=== PATIENT | female | born 1985 | race African-American/Black ===

== ENCOUNTER 2020-09-16 09:44 | Outpatient (CLI) | payer MEDICARE, SELFPAY ==
--- NOTE | ~2020-09-16 | XR_ITS ---
XR hip LT min 2V 09/16/2020 10:10 Indication: Left hip pain Procedure: 2 views left hip Comparison: No prior studies for comparison. Findings: No fracture, subluxation or dislocation. No significant soft tissue abnormality. No foreign bodies. Impression: 1: No significant bone or joint abnormality. Reviewed, dictated and finalized at location A. 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
== END 2020-09-16 09:45 | disposition home or self-care (01) ==
PROVIDERS: PCP Internal Medicine Infectious Disease; Visit Provider Internal Medicine Infectious Disease
DX: M25.552 Pain in left hip (principal)
CPT/HCPCS: 73502

== ENCOUNTER 2020-11-15 07:53 | Outpatient (CLI) | payer MEDICARE, SELFPAY ==
--- NOTE | ~2020-11-15 | XR_ITS ---
EXAMINATION: XR cervical spine 4-5V EXAM DATE: 11/15/2020 09:15 INDICATION: Cervical radiculopathy. TECHNIQUE: Cervical spine frontal, lateral, lateral swimmers, and open-mouth odontoid projections. C orrelation is made to scoliosis exam 2013. FINDINGS: There is no evidence of acute cervical fracture. The odontoid process is intact. Pre-dens space is normal. Prevertebral soft tissue is normal. There are no soft tissue abnormalities identi fied. The vertebral bodies are aligned. Vertebral body and disc heights are well-maintained. No appreciable arthropathy. Lung apices unremarkable. IMPRESSION: 1. Unremarkable cervical spine x-ray. Reviewed, dictated and finalized at location B. ND HELPER
--- NOTE | ~2020-11-15 | MR_ITS ---
EXAMINATION: MR lumbar spine wo con DATE: 11/15/2020 09:14 INDICATION: Lumbar radiculopathy. TECHNIQUE: Magnetic resonance imaging (MRI) of the lumbar spine was performed without intravenous con trast. Sequences included sagittal T2-weighted FSE, sagittal STIR FSE, sagittal T2-weighted FS FSE, s agittal T1-weighted FSE, and axial T2-weighted FSE. COMPARISON: None FINDINGS: There is 10 degrees levoscoliosis of thoracolumbar spine. Vertebral body heights and interv ertebral disc heights are normal. There is a hemangioma in L1 vertebral body. The distal spinal cord signal intensity is normal. The conus medullaris is at L1. The following disc levels are specifically discussed: L1-L2: The disc does not extend beyond the endplate margin. There is no facet joint osteoarthritis. T here is no neural foraminal stenosis. There is no central canal stenosis. L2-L3: The disc does not extend beyond the endplate margin. There is no facet joint osteoarthritis. T here is no neural foraminal stenosis. There is no central canal stenosis. L3-L4: The disc is mildly bulging. There is mild bilateral facet joint osteoarthritis. There is mild bilateral neural foraminal stenosis. There is mild central canal stenosis. L4-L5: The disc is bulging and has an annular fissure. There is moderate bilateral facet joint osteoa rthritis. There is mild bilateral neural foraminal stenosis. There is mild central canal stenosis. L5-S1: The disc is bulging and has an annular fissure. There is severe bilateral facet joint osteoart hritis. There is mild bilateral neural foraminal stenosis. There is mild central canal stenosis. IMPRESSION: 1. Mild lumbar spondylosis. 2. Thoracolumbar levoscoliosis. Reviewed, dictated and finalized at location A. [employer]
== END 2020-11-15 07:54 | disposition home or self-care (01) ==
PROVIDERS: PCP Internal Medicine Infectious Disease; Visit Provider Pain Medicine Interventional Pain Medicine
DX: M47.816 Spondylosis without myelopathy or radiculopathy, lumbar region (principal)
CPT/HCPCS: 72050; 72148

== ENCOUNTER 2021-01-19 08:03 | Outpatient (CLI) | payer MEDICARE, SELFPAY ==
--- NOTE | ~2021-01-19 | MR_ITS ---
EXAMINATION: MR cervical spine wo con EXAM DATE: 01/19/2021 08:45 INDICATION: Cervical radiculopathy. Left arm numbness. Neck pain. TECHNIQUE: Multi-sequential, multiplanar MR images of the cervical spine were obtained without contra st. Axial T2, axial T2 MERGE sequence. Sagittal T1, T2, T2 fat saturation images also obtained. Com parison is made to prior examination from 01/03/2019. FINDINGS: The vertebral bodies are aligned in the AP dimension. Vertebral body and disc heights are well-maintained. There are no suspicious marrow signal abnormalities. The spinal cord signal intensit y and intrinsic morphology is normal. Cervicomedullary junction is normal in appearance. Paraspinal s oft tissue is unremarkable. Level by level evaluation: C2-C3: Disc does not extend beyond the endplate margin. Uncovertebral joint arthropathy: Mild left. Facet joint arthropathy: Minimal bilateral. Neural foraminal stenosis: No stenosis. Central canal stenosis: No stenosis. C3-C4: Disc does not extend beyond the endplate margin. Uncovertebral joint arthropathy: Mild bilateral. Facet joint arthropathy: Minimal bilateral. Neural foraminal stenosis: No stenosis. Central canal stenosis: No stenosis. C4-C5: Disc does not extend beyond the endplate margin. Uncovertebral joint arthropathy: Mild bilateral. Facet joint arthropathy: None. Neural foraminal stenosis: No stenosis. Central canal stenosis: No stenosis. C5-C6: Disc does not extend beyond the endplate margin. Uncovertebral joint arthropathy: Minimal bilateral. Facet joint arthropathy: None. Neural foraminal stenosis: No stenosis. Central canal stenosis: No stenosis. C6-C7: Disc does not extend beyond the endplate margin. Uncovertebral joint arthropathy: Mild bilateral. Facet joint arthropathy: None. Neural foraminal stenosis: No stenosis. Central canal stenosis: No stenosis. C7-T1: Disc does not extend beyond the endplate margin. Uncovertebral joint arthropathy: Minimal bilateral. Facet joint arthropathy: None. Neural foraminal stenosis: No stenosis. Central canal stenosis: No stenosis. IMPRESSION: Mild cervical arthropathy. No stenosis. Reviewed, dictated and finalized at location A.
== END 2021-01-19 08:04 | disposition home or self-care (01) ==
PROVIDERS: PCP Internal Medicine Infectious Disease; Visit Provider Pain Medicine Interventional Pain Medicine
DX: M54.17 Radiculopathy, lumbosacral region (principal); Z79.891 Long term (current) use of opiate analgesic; G89.4 Chronic pain syndrome
CPT/HCPCS: 72141

== ENCOUNTER 2023-01-25 08:07 | Outpatient (CLI) | payer OTHER, SELFPAY ==
--- NOTE | ~2023-01-25 | CT_ITS ---
CT Scan of the Chest without Contrast: Clinical Indication: Covid 19 infection Technique: Contiguous sections were acquired throughout the chest without intravenous contrast. Dose reduction technique was used on this scan by utilizing automated exposure control and iterative recon struction technique. The dose-length product (DLP) was 120.50 mGy-cm. Findings: There is no evidence of any significant mediastinal, hilar or axillary lymphadenopathy. The mediastin al soft tissues appear normal. There is no evidence of pleural or pericardial effusion. The lungs are clear. No pulmonary nodules or infiltrates are noted. Images through the upper abdomen reveal no abnormalities. Impression: No significant abnormalities seen. Reviewed, dictated and finalized at location . Impression: No significant abnormalities seen.
--- NOTE | ~2023-01-25 | XR_ITS ---
AP and oblique views of the bilateral sacroiliac joints CLINICAL HISTORY: Sacroiliitis FINDINGS: No degenerative change of the SI joints. No erosive change or sclerosis. Bilateral SI joint s are unremarkable. Bilateral hip joints appear unremarkable. Soft tissues are unremarkable. IMPRESSION: Unremarkable exam. Reviewed, dictated and finalized at location . IMPRESSION: Unremarkable exam.
--- NOTE | ~2023-01-25 | XR_ITS ---
Lumbosacral Spine: AP and lateral views Clinical History: Pain Findings: The normal lordotic curve is maintained. The vertebral bodies and posterior elements are i ntact. The intervertebral disc spaces are preserved. The sacroiliac joints are normally outlined. Impression: No significant abnormality. Reviewed, dictated and finalized at [facility]. Impression: No significant abnormality.
--- NOTE | ~2023-01-25 | XR_ITS ---
Cervical Spine: AP, lateral, open-mouth views Clinical History: Radiculopathy Findings: The normal lordotic curve is maintained. The vertebral bodies and posterior elements appea r intact. The intervertebral disc spaces are well maintained. Pre-vertebral soft tissues are unremar kable. Impression: No significant abnormality is seen. Reviewed, dictated and finalized at [facility]. Impression: No significant abnormality is seen.
== END 2023-01-25 08:08 | disposition home or self-care (01) ==
PROVIDERS: PCP Internal Medicine Infectious Disease; Visit Provider Nurse Practitioner Adult Health
DX: M46.1 Sacroiliitis, not elsewhere classified (principal); M47.26 Other spondylosis with radiculopathy, lumbar region; M47.812 Spondylosis without myelopathy or radiculopathy, cervical region; Z86.16 Personal history of COVID-19
CPT/HCPCS: 71250; 72050; 72100; 72202

== ENCOUNTER 2023-05-31 07:31 | Outpatient (CLI) | payer OTHER, SELFPAY ==
--- NOTE | ~2023-05-31 | MR_ITS ---
EXAMINATION: MR lumbar spine wo con DATE: 05/31/2023 08:33 INDICATION: Other spondylosis with radiculopathy, lumbar spine. Low back pain. TECHNIQUE: Magnetic resonance imaging (MRI) of the lumbar spine was performed without intravenous con trast. Sequences included sagittal T2-weighted FSE, sagittal T2-weighted FS FSE, sagittal T1-weighted FSE, and axial T2-weighted FSE. COMPARISON: Lumbar spine MRI 11/15/2020 FINDINGS: There is 8 degrees levocurvature of lumbar spine. Vertebral body heights and intervertebral disc heights are normal. The distal spinal cord signal intensity is normal. The conus medullaris is at L1-L2. The following disc levels are specifically discussed: L1-L2: The disc does not extend beyond the endplate margin. There is mild bilateral facet joint osteo arthritis. There is no neural foraminal stenosis. There is no central canal stenosis. L2-L3: The disc does not extend beyond the endplate margin. There is mild bilateral facet joint osteo arthritis. There is no neural foraminal stenosis. There is no central canal stenosis. L3-L4: There is a left foraminal protrusion. There is mild bilateral facet joint osteoarthritis. Ther e is mild left neural foraminal stenosis. There is no central canal stenosis. L4-L5: The disc is mildly bulging. There is mild bilateral facet joint osteoarthritis. There is mild bilateral neural foraminal stenosis. There is no central canal stenosis. L5-S1: The disc does not extend beyond the endplate margin. There is mild bilateral facet joint osteo arthritis. There is no neural foraminal stenosis. There is no central canal stenosis. IMPRESSION: 1. Mild lumbar spondylosis, stable from 11/15/2020. Reviewed, dictated and finalized at location A.
== END 2023-05-31 07:32 | disposition home or self-care (01) ==
PROVIDERS: PCP Internal Medicine Infectious Disease; Visit Provider Nurse Practitioner Adult Health
DX: M47.26 Other spondylosis with radiculopathy, lumbar region (principal)
CPT/HCPCS: 72148

== ENCOUNTER 2024-06-28 07:54 | Outpatient (CLI) | payer MEDICARE, MEDICAID, SELFPAY ==
--- NOTE | ~2024-06-28 | MM_ITS ---
EXAMINATION: MM screening magan BI w sanam HISTORY: Screening mammogram TECHNIQUE: Craniocaudal and mediolateral oblique 3-D tomosynthesis images were obtained and synthetic 2-D images were generated. CAD analysis was submitted and interpreted. COMPARISON: No prior mammogram is available for comparison at this institution. BREAST PARENCHYMAL COMPOSITION:Not Dense. There are scattered areas of fibroglandular density. FINDINGS: No suspicious mass, calcification, or architectural distortion are identified in either sara ast to suggest malignancy. There has been no suspicious interval change. IMPRESSION: No mammographic evidence of malignancy. Recommend routine screening mammography in one year. BI-RADS Category 1: Negative Reviewed, dictated and finalized at location .
== END 2024-06-28 07:55 | disposition home or self-care (01) ==
PROVIDERS: PCP Internal Medicine Infectious Disease; Visit Provider Internal Medicine Infectious Disease
DX: Z12.31 Encounter for screening mammogram for malignant neoplasm of breast (principal)
CPT/HCPCS: 77063; 77067

== ENCOUNTER 2025-08-03 12:23 | Outpatient (CLI) | payer MEDICARE, SELFPAY ==
--- NOTE | ~2025-08-03 | US_ITS ---
US renal BI 08/03/2025 13:17 Procedure: Realtime transabdominal ultrasound of the kidneys and bladder. Indication: Chronic kidney disease stage II Comparison: No prior studies for comparison. Findings: Renal echotexture is normal bilaterally without hydronephrosis, contour deforming mass or renal calculus. The right kidney measures 9.6 cm and left kidney measures 10.7 cm. Bladder within normal limits. Impression: 1: Unremarkable renal ultrasound. No stones, masses or hydronephrosis. Reviewed, dictated and finalized at location O. Impression: 1: Unremarkable renal ultrasound. No stones, masses or hydronephrosis.
--- OUTSIDE RECORDS SUMMARY | 2025-08-03 13:17 | XMS_ITS | Clinical Summary ---
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 Phone Omar Mahan MD Primary Care Provider Social History Tobacco Use Types Packs/Day Years Used Date Smoking Tobacco: Never Assessed Comments Unknown Sex and Gender Information Value Date Recorded Sex Assigned at Female 12/27/2023 4:04 PM CDT Legal Sex Female 8:55 AM CDT Gender Identity Female 12/27/2023 4:04 PM CDT Sexual Orientation Straight 12/27/2023 4: 04 PM CDT Plan of Treatment Health Maintenance Due Date Last Done Comments Hepatitis C Virus (HCV) Screening 1983 Hepatitis B Immunization (1 of 3 - 19+ 3-dose series) 2002 Pap Smear 2004 Human Papillomavirus (HPV) Immunization (1 - 3-dose SCDM series) 2010 Cervical Cancer Screening (CCS) 2013 HPV/Cotest 2013 Medicare Initial AWV [id number] 10/12/2022 Influenza Immunization (#1) 06/12/202508/13, 05/16/2021, 09/23/2020, Additional history exists SARS-COV-2 Immunization ( season) 2025 09/09/2021, 01/27/2021, 01/06/2021 Respiratory Syncytial Virus (RSV) Immunization (Adult) (1 - 1-dose 75+ series) 2058 DTaP/Tdap/Td Immunization Discontinued 11/26/2017, 09/2012 TdaP Immunization Completed 11/26/2017 Pneumococcal Immunization Combined Aged Out 08/04/2018, 07/29/2017, 01/22/2012 No longer eligible based on patient's age to complete this topic Meningococcal Immunization (ACWY) Aged Out No longer eligible based on patient's age to complete this topic Rotavirus Immunization Aged Out No lo nger eligible based on patient's age to complete this topic Insurance MEDICARE C [employer] Care Teams Automobile Painter Relationship Specialty Start Date End Date Omar Mahan MD [address] [place] [address] PCP - General Internal Medicine 06/08/23
--- OUTSIDE RECORDS SUMMARY | 2025-08-03 13:17 | XMS_ITS | Clinical Summary ---
Author Organization [facility] Address [address] [place] [address] Care Team Providers Care Processing Associate Name Role Phone Omar Mahan MD Primary Care Provider Jac Robbins MD Unavailable Allergies Active Allergy Reactions Criticality Noted Date Comments Tramadol Agitation,Dizziness, Mental status changes,Nausea only,Stomach upset Low 11/04/[address] (CYMBALTA) 30 mg capsule Take 1 capsule (30 mg total) by mouth 2 (two) times a day Active Genvoya [phone] mg tablet Take 1 tablet by mouth nightly Active rosuvastatin (CRESTOR) 10 mg tablet Take 1 tablet (10 mg total) by mouth nightly Active pregabalin (LYRICA) 200 mg capsule Active naloxone (NARCAN) 4 mg/actuation spray,non-aero redd Administer 1 spray into affected nostril(s) as needed for opioid reversal for up to 1 dose Call 911. Administer a single spray in one nostril. Repeat every 3 minutes as needed if no or minimal response. 1 each 07/03/20 24 Active blood-glucose sensor (Dexcom G7 Sensor) device Active Aviane 0.1-20 mg-mcg per tablet 10/26/19 25 Active metFORMIN (GLUCOPHAGE) 500 mg tabletIndicati ons:Type 2 diabetes mellitus with hyperglycemia, without long-term current use of insulin (HCC) Take 2 tablets (1,000 mg total) by mouth 2 (two) times a day with meals 360 tablet 3 03/21/20 25 026 Active tirzepatide (Mounjaro) 5 mg/0.5 mL pen injector injectionIndic ations:type 2 diabetes mellitus Inject 0.5 mL (5 mg total) under the skin every 7 days 2 mL 11 04/10/20 25 026 Active cyclobenzaprin e (FLEXERIL) 10 mg tablet TAKE 1 TABLET BY MOUTH THREE TIMES DAILY NEEDED FOR SPASM 03/17/20 25 Active naproxen (Aleve) 220 mg tablet take tablet prn 025 Discontinu ed(No longer taking - Do not display on AVS) docusate sodium (COLACE) 100 mg capsule TAKE 1 CAPSULE BY MOUTH ONCE DAILY DIRECTED FOR 30 DAYS 025 Discontinu ed(No longer taking - Do not display on AVS) dulaglutide (Trulicity) 0.75 mg/0.5 mL pen injector 025 Discontinu ed(No longer taking - Do not display on AVS) metoprolol succinate (KAPSPARGO) 25 mg capsule,sprink le,ER 24hr extended release capsule Take 1 capsule every day by oral route. 05/22/20 22 025 Discontinu ed(No longer taking - Do not display on AVS) semaglutide (Ozempic) 0.25 mg or 0.5 mg (2 mg/3 mL) pen injector injection Inject 0.5 mg every week by subcutaneous route at dinner for 90 days. 025 Discontinu ed(No longer taking - Do not display on AVS) Active Problems Problem Noted Date Diagnosed Date Type 2 diabetes mellitus wit h hyperglycemia, without long-term current use of insulin 10/15/2023 Assessment & Plan (07/05/2025 1:33 PM CDT): Chronic problem. A1c at goal & improved from 8.0% 03/08/25 to now 5.1%. no changes at this time. Has been eating more consistently. Has been using diabetes.org website. Current medications: Metformin 500mg twice daily with meals Mounjaro 5mg weekly UTD on DM eye exam (10/24/24 [facility] in [place]). UTD on labs. Discussed with Dominga Kim: Strive for regular exercise (30min most days) and diet (get at least 4-5 servings of fruit and veggies daily, avoid processed foods, increase lean protein intake and decrease carb portions as well as fruit juices, regular soda & desserts). Watch carbs and simple sugars. Check the blood sugar: Dexcom G7. Check the feet daily for skin breakdown and infection. Assessment & Plan (02/20/2025 2:01 PM CDT): Chronic problem. A1c worsened from 6.8% 10/20/24 to now 7.6%. will stop the triscuits & shredded wheat. Has been eating more consistently. Has been using diabetes.org website. No changes at this time. Current medications: Metformin 500mg twice daily with meals UTD on DM eye exam (10/24/24 [facility] in [place]). UTD on labs. Discussed with Dominga Kim: Strive for regular exercise (30min most days) and diet (get at least 4-5 servings of fruit and veggies daily, avoid processed foods, increase lean protein intake and decrease carb portions as well as fruit juices, regular soda & desserts). Watch carbs and simple sugars. Check the blood sugar: Dexcom G7. Check the feet daily for skin breakdown and infection. Assessment & Plan (10/20/2024 3:45 PM FACE PAINTER): Chronic problem. A1c improved from 7.6% 09/15/24 to now 6.8%. no changes at this time. Has been eating more consistently. Has been using diabetes.[employer] website. No changes at this time. Current medications: Metformin 500mg with breakfast UTD on DM eye exam (01/11/24). Has appt next week with [facility] in [place]. Letter sent to get copy of report. Will update MA/Cr. Verified that she uses [employer]. Aware to check results/results letter in [employer]. Will contact by phone if needed. Discussed with Dominga Kim: Strive for regular exercise (30min most days) and diet (get at least 4-5 servings of fruit and veggies daily, avoid processed foods, increase lean protein intake and decrease carb portions as well as fruit juices, regular soda & desserts). Watch carbs and simple sugars. Check the blood sugar: Dexcom G7. Check the feet daily for skin breakdown and infection. Assessment & Plan (03/31/2024 4:05 PM CDT): Chronic, with hypoglycemic symptoms No BG under 60 documented Metformin and GLP1 very unlikely to cause hypoglycemia CGM With DEXCOM for a month Sensor placed and miranda downloaded to her phone, linked to the office Assessment & Plan (10/15/2023 12:54 PM FACE PAINTER): Hba1c was Lab Results Component Value Date HGBA1C 5.7 10/15/2023 today, indicating adequate DM control Goal Hba1c under 7 and blood glucose level in the 120-160 range was explained Low carb diet and daily aerobic and /or resistant exercise were advised Prevention and treatment of hyypoglcyemia were discussed with the patient Blood glucose monitoring : 1 x day Adjustment to medications: Continue Metformin Continue Ozempic 0.5 mg weekly Mixed diabetic hyperlipidemi a associated with type 2 diabetes mellitus 10/15/2023 Assessment & Plan (07/05/2025 1:23 PM CDT): Chronic problem. At goal on current Rosuvastatin 10mg. Last lipid panel: 03/08/25 LDL=62, TG=82. Assessment & Plan (02/20/2025 1:09 PM CDT): Chronic problem. Near goal on current Rosuvastatin 10mg. Last lipid panel: 09/15/24 LDL=77, TG=68. Assessment & Plan (10/20/2024 3:18 PM FACE PAINTER): Chronic problem. Near goal on current Rosuvastatin 10mg. Last lipid panel: 09/15/24 LDL=77, TG=68. Assessment & Plan (03/31/2024 4:04 PM CDT): Chronic, stable Continue rosuvastatin Assessment & Plan (10/15/2023 12:55 PM FACE PAINTER): Low cholesterol low fat diet Update lipid profile Continue statin therapy Nadia thyroiditis 07/16/2023 Weight gain 02/12/2023 Goiter 02/12/2023 Fatigue 02/12/2023 Impaired glucose tolerance 08/25/2022 Hirsutism 08/25/2022 Polyuria 05/22/2022 Hyperlipidemia 03/20/2021 Breast hypertrophy 04/23/2017 Shortness of breath 10/22/2016 Palpitations 10/22/2016 Human immunodeficiency virus (HIV) disease 10/22 Dizziness 10/22/2016 Peripheral nerve disease 05/17/2012 CKD (chronic kidney disease) Resolved Problems Problem Noted Date Diagnosed Date Resolved Date Hypoglycemia 12/26/2023 07/02/2025 Well controlled type 2 diabetes mellitus 07/16/2023 10/20/2024 Prediabetes 02/12/2023 07/02/2025 Hypoglycemia 05/22/2022 07/02/2025 Encounters Date Type Department Care Team Description 07/10/2025 Orders Only [facility] Diabetes and Endocrinology [address] [place] [phone] ProviderKimberly MD 07/05/2025 1:00 PM CDT Office Visit [facility] Diabetes and Endocrinology [address] [place] [phone] Francheska Cifuentes NP Type 2 diabetes mellitus with hyperglycemia, without long-term current use of insulin (HCC) (Primary Dx); Mixed diabetic hyperlipidemia associated with type 2 diabetes mellitus (HCC) 07/05/2025 Orders Only [facility] Medical [facility] Diabetes and Endocrinology [address] [place] [phone] ProviderKimberly MD 06/15/2025 Telephone [facility] Diabetes and Endocrinology [address] [place] [phone] Francheska Cifuentes NP Appointment/Schedules from Last 3 Months Immunizations Immunization Administration Dates Next Due DTaP 01/22/2012 Influenza, Quadrivalent, Spl it, Intramuscular 09/09/2021,05/16/2021,06/30/2019,07/28,08/05/2016,07/16/2015 Influenza, Quadrivalent, Spl it, Preservative Free, Intramuscular 08/26/2023,09/23/2020,08/04/2018 Influenza, Trivalent, IM (MDV) 08/30/2014 Influenza, Unspecified 08/26/2023 Pneumococcal Conjugate PCV 13 07/29/2017 Pneumococcal Polysaccharide PPV23 08/04/2018,09/2012 Tdap 11/26/2017 Medical History Medical History Date Comments HIV disease (HCC) Fibromyalgia, primary Peripheral neuropathy CKD (chronic kidney disease) Family History Medical History Relation Name Comments Hypertension Mother Multiple sclerosis Mother Hypertension Sister Relation Name Status Comments Mother Sister Social History Tobacco Use Types Packs/Day Years Used Date Smoking Tobacco: Never Tobacco Cessation:Counseling Given: Not Answered Alcohol Use Standard Drinks/Week Comments Yes 0 (1 standard drink = 0.6 oz pur e alcohol) AUDIT-C Answer Date Recorded Q1: How often do you have a drink containing alc ohol? Monthly or less 12/26/2023 Q2: How many drinks containi ng alcohol do you have on a typical day when you are drinking? 1 or 2 12/26/2023 Q3: How often do you have si x or more drinks on one occasion? Never 12/26/2023 Personal Safety Answer Date Recorded Have you ever been in or are you currently in a harmful physical or emotional relationship or is someone making you feel afraid or unsafe? Denies 07/03/2024 Comments No Sex and Gender Information Value Date Recorded Sex Assigned at Not on file Legal Sex Female 7:32 AM FACE PAINTER Gender Identity Female 10/12/2023 8:58 AM FACE PAINTER Sexual Orientation Straight 10/12/2023 8: 58 AM FACE PAINTER Obstetrics History Last Filed Vital Signs Vital Sign Reading Time Taken Comments Blood Pressure 124/70 07/05/2025 1:03 PM CDT Pulse 80 07/05/2025 1:03 PM CDT Temperature 36.8 C (98.2 F) 07/03/2024 5:55 PM CDT Respiratory Rate 18 07/05/2025 1:03 PM CDT Oxygen Saturation 100% 07/03/2024 8:01 PM CDT Inhaled Oxygen Concentration - - Weight 63.3 kg (139 lb 8 oz) 07/05/2025 1:03 PM CDT Height 165.1 cm (5' 5) 07/05/2025 1:03 PM CDT Body Mass Index 23.21 07/05/2025 1:03 PM CDT Plan of Treatment Health Maintenance Due Date Last Done Comments Breast Cancer Screening-Mammogram 1983 Cervical Cancer Screening-Pa p and HPV 1983 Depression Screening 1983 HLA B 5701 Typing 1983 T Spot (quantiferon gold) 1983 HIV+ Chlamydia and Gonorrhea Screening (Rectal) 1994 HIV + Chlamydia and Gonorrhe a Screening (Urine) 1996 HIV+ Chlamydia and Gonorrhea Screening (Throat) 1996 Hepatitis C Screening 1996 RPR Screening 1996 Varicella Vaccines (1 of 2 - 13+ 2-dose series) 1996 G6PD 2001 Hepatitis A Screening 2001 Hepatitis B Screening 2001 Regular Well Visit/Exam 18-64 2001 Hepatitis A Vaccines (1 of 2 - Risk 2-dose series) 2002 Hepatitis B Vaccines (1 of 3 - 19+ 3-dose series) 2002 Zoster Vaccine (1 of 2) 2002 HPV Vaccines (1 - Risk 3-dos e SCDM series) 2010 Proteinuria screening Urinalysis (UA) 12/25/2024 12/26/2023, 12/26/2023 Covid-19 Vaccine (2024-2 6 season) 2025 09/09/2021, 01/27/2021, 01/06/2021 Influenza Vaccine (#1) 2025 , 08/26/2023, 09/09/2021, Additional history exists Foot Exam 10/20/2025 10/20/2024 Dilated Eye Exam 10/24/2025 10/24/2024, 10/2023, 12/29/2023 Albumin Creatinine Ratio, Urine 03/08/2026 03/08/2025, 10/20/2024, 10/15/2023 Lipid Panel 03/08/2026 03/08/2025, 12/0 02/2024, 10/15/2023 eGFR 03/09/2026 03/09/2025, 08/12, 12/27/2023, Additional history exists Hemoglobin A1C 07/05/2026 07/05/2025, 02/10, 02/20/2025, Additional history exists DTaP/Tdap/Td Vaccine (3 - Td or Tdap) 11/26/2027 11/26/2017, 01/22/2012 Pneumococcal vaccine <65 (4 of 4 - PCV20 or PCV21) 2033 08/04/2018, 07/29/2017, 01/22/2012 Procedures Procedure Name Priority Date/Time Associated Diagnosis Comments POCT HEMOGLOBIN A1C Routine 07/05/2025 1 :17 PM CDT Type 2 diabetes mellitus with hyperglycemia, without long-term current use of insulin (HCC) POCT GLUCOSE Routine 07/05/2025 1:07 PM CDT Type 2 diabetes mellitus with hyperglycemia, without long-term current use of insulin (HCC) COMPREHENSIVE METABOLIC PANEL Routine 03/09/2025 4:43 PM CDT LIPID PANEL Routine 03/08/2025 7:32 AM CDT ALBUMIN CREATININE RATIO, URINE Routine 03/08/2025 7:32 AM CDT HM DIABETES EYE EXAM Routine 10/24/2024 URINALYSIS AND REFLEX TO MICROSCOPIC AND CULTURE STAT 12/26/2023 1:34 PM CDT from Last 3 Months or Most Recently Relevant to Health Maintenance Results * POCT hemoglobin A1c (07/05/2025 1:17 PM CDT) Hemoglobin A1C, POC 5.1 4.0 - 5.6 % Blood 07/05/2025 1:17 PM CDT us Francheska Cifuentes NP POINT OF CARE TEST ORDERA BLES Final Result * POCT glucose (07/05/2025 1:07 PM CDT) Pathologist [facility] Glucose Blood, POC 73 Normal Fasting 70 - 100, Random <200 mg/dL Blood 07/05/2025 1:07 PM CDT Francheska Cifuentes [employer]EWARD/ST[employer]ESS [employer] POINT OF CARE TEST ORDERA BLES Final Result * (ABNORMAL) Comprehensive metabolic panel (03/09/2025 4:43 PM CDT) [facility] SCRIBED Sodium 138 135 - 145 mmol/L EXTERNAL LAB SCRIBED Potassium 4.0 3.3 - 5.2 mmol/L EXTERNAL LAB SCRIBED Chloride 102 97 - 110 mmol/L EXTERNAL LAB SCRIBED Carbon Dioxide 27 22 - 32 mmol/L EXTERNAL LAB SCRIBED Anion Gap 0(A) 2 - 15 mmol/L EXTERNAL LAB SCRIBED Urea Nitrogen (BUN) 10 6 - 25 mg/dL EXTERNAL LAB SCRIBED Creatinine 0.84 0.60 - 1.10 mg/dL EXTERNAL LAB SCRIBED Glucose 132 70 - 199 mg/dL EXTERNAL LAB SCRIBED Calcium 9.4 8.5 - 10.3 mg/dL EXTERNAL LAB SCRIBED Bilirubin 0.4 0.1 - 1.2 mg/dL EXTERNAL LAB SCRIBED Plasma Protein 7.2 6.5 - 8.5 g/dL EXTERNAL LAB SCRIBED Albumin 4.2 3.5 - 5.0 g/dL EXTERNAL LAB SCRIBED Alkaline Phosphatase 94 40 - 130 Units/L EXTERNAL LAB SCRIBED Alanine Transaminase (ALT) 10 7 - 45 Units/L EXTERNAL LAB SCRIBED Aspartate Transaminase (AST) 12 10 - 45 Units/L EXTERNAL LAB SCRIBED eGFR 89 >60 mL/min/1.7 3 m2 EXTERNAL LAB SCRIBED eGFR 0 >60 mL/min/1.7 3 m2 EXTERNAL LAB Blood 03/09/2025 4:43 PM CDT us Historical Provider LAB BLOOD ORDERABLES Edit ed Result - Final EXTERNAL LAB * (ABNORMAL) Albumin Creatinine Ratio, Urine (03/08/2025 7:32 AM CDT) SCRIBED Creatinine, Urine 477(A) 20 - 275 [facility] SCRIBED Microalbumin 2.9 NA - NA [facility] S[facility]IBED Microalb/Creat Ratio 6 <30 - NA [facility] Urine 03/08/2025 7:32 AM CDT Historical Provider LAB URINE ORDERABLES Edit ed Result - Final Performing Organization Address City/[facility] Co de Phone Number [facility] * Lipid panel (03/08/2025 7:32 AM CDT) SCRIBED Cholesterol, Total 139 30 - 199 mg/dL [facility] SCRIBED Triglycerides 82 <=149 mg/dL [facility] SCRIBED HDL 61 >=40 mg/dL [facility] SCRIBED LDL 62 <=129 mg/dL [facility] Scribed Non-HDL Cholesterol 78 NONE mg/dL [facility] SCRIBED Total Cholesterol/HDL Ratio 139 NONE [facility] Blood 03/08/2025 7:32 AM CDT Historical Provider LAB BLOOD ORDERABLES Edit ed Result - Final Performing Organization Address [facility] de Phone Number [facility] * DIABETES EYE EXAM (10/24/2024) SCRIBED DIABETIC DILATED EYE EXAM Normal 10/24/2024 Historical Provider HEALTH MAINTENANCE Edited Result - Final * (ABNORMAL) Urinalysis reflex to microscopic and culture Urine, clean voided (12/26/2023 1:34 PM CDT) Color, ur Yellow Yellow Comment:Testing performed by : [facility], [address] [place] [address]., [id number] Clarity, ur Clear Clear MED Comment:Testing performed by : [facility], [address] [place] [address]., [id number] Specific gravity, ur 1.009 1.003 - 1.030 MED Comment:Testing performed by : [address], [place]., [address] pH, urine 7.0 MED Comment: Interpretive Data U rine pH is affected by diet, medications, systemic acid-base disturbances, and renal tubular function. pH may affect urinary stone formation. For example, urine pH below 6.0 may help reduce the tendency for calcium phosphate stones and pH greater than 6.0 may reduce the tendency for uric acid stone formation. Source: [facility] Response Current Interpretive Data was last revised on 2017 Testing performed by: [facility], [address] [place] [address], [place]., [address] Protein, ur ql Negative Negative MED Comment:Testing performed by : [address], [place]., [address] Glucose, ur ql Negative Negative MED Comment:Testing performed by : [address] [address] Ketones, ur Negative Negative MED Comment:Testing performed by : [address], [place]., [address] Bilirubin, ur Negative Negative MED Comment:Testing performed by : [address], [place]., [address] Blood, ur 1+(A) Negative MED Comment:Testing performed by : [address], [place]., [address] Urobilinogen, ur <2.0 <2.0 mg/dL MED Comment:Testing performed by : [address] [address] Nitrite, ur Negative Negative MED Comment:Testing performed by : [address], [place]., [address] Leukocyte esterase, ur Negative Negative MED Comment:Testing performed by : [address], [place]., [address] UA reflex comment Reflex to microscopic UA will be performed. MED Comment:Testing performed by : [address], [place]., [address] Urine, clean voided 12/26/2023 1:34 PM CDT 12/26/2023 1:37 PM CDT us Ben James MD LAB MICROBIOLOGY - GENERAL OR DERABLES Final Result MED [facility] [id number] [facility] Department [place] [address] from Last 3 Months or Most Recently Relevant to Health Maintenance Insurance MEDICARE [facility] [employer] ADV[employer]AGE Advance Directives For more information, please contact: [phone] Documents on File Type Date Recorded Patient Director Risk Expl anation ADVANCE DIRECTIVE 12/28/2023 3:00 PM Power of Reel Operator-Medical * LIMITED - No CPR (Latest Code Status on File) Date Activated Date Inactivated Comments 12/26/2023 5:49 PM 12/27/2023 7:26 PM * Full Code Date Activated Date Inactivated Comments 12/26/2023 3:47 PM 12/26/2023 5:49 PM Care Teams Processing Associate Relationship Specialty [place] [address] [place] [id number] PCP - General 06/05/17 [place] [id number] [facility] [address] [place] [address] Consulting Physician Endocrinology Diabetes & Metabolism 07/15/23
--- OUTSIDE RECORDS SUMMARY | 2025-08-03 13:17 | XMS_ITS | Clinical Summary ---
Author Organization [facility] Facility Address [address] [address] Care Team Providers Care Tower Cleaner Name Role Phone Omar Mahan MD Primary Care Provider [phone] Allergies Active Allergy Reactions Criticality Noted Date Comments Tramadol 07/04/2025 Medications DULoxetine (CYMBALTA) [address] capsule Take 30 mg by mouth in the morning and 30 mg in the evening. Active Genvoya [phone] MG per tablet TAKE 1 TABLET BY MOUTH DAILY. FOLLOW UP Active Aviane 0.1-20 MG-MCG per tablet TAKE 1 TABLET BY MOUTH ONCE DAILY IN THE MORNING CONTINUOUSLY (SKIP PLACEBO) Active metFORMIN (GLUCOPHAGE) 500 MG tablet Take 1,000 mg by mouth in the morning and 1,000 mg in the evening. Take with meals. Active pregabalin (LYRICA) 200 MG capsule Take 200 mg by mouth in the morning and 200 mg in the evening. Active rosuvastatin (CRESTOR) 10 MG tablet Take 10 mg by mouth every night Active Mounjaro 5 MG/0.5ML solution auto-injector INJECT 1 PEN-INJECTOR SUBCUTANEOUSLY ONCE A WEEK Active Active Problems No known active problems Encounters Date Type Department Care Team Description 08/02/2025 Documentation Only [place] [employer] [facility], [address] [address] Jhony Carter MD 07/31/2025 Orders Only [place] [employer] [facility], [address] [address] Jhony Carter MD 07/04/2025 3:15 PM CDT Office Visit [place] [employer] [facility] [address] [place] [address] Jhony Carter MD Chronic kidney disease stage 2 (Primary Dx) 05/03/2025 Documentation Only [facility], [facility] [address] [address] Provider, MD Kimberly from Last 3 Months Family History Medical History Relation Comments Hypertension Brother Hypertension Father's Sister Hypertension Maternal Grandfather Stroke Maternal Grandfather Hypertension Maternal Grandmother Autoimmune disease Mother Diabetes Mother's Brother Stroke Mother's Brother Dementia Mother's Sister Hypertension Mother's Sister Relation Status Comments Brother Father Alive Father's Sister Maternal Grandfather Maternal Grandmother Mother Alive Mother's Brother Mother's Sister Social History Tobacco Use Types Packs/Day Years Used Date Smoking Tobacco: Never Smokeless Tobacco: Never Alcohol Use Standard Drinks/Week Comments Yes 0 (1 standard drink = 0.6 oz pur e alcohol) Comments Unknown Sex and Gender Information Value Date Recorded Sex Assigned at Not on file Legal Sex Female 2:56 PM EDT Gender Identity Not on file Sexual Orientation Not on file Last Filed Vital Signs Vital Sign Reading Time Taken Comments Blood Pressure 91/61 07/04/2025 3:25 PM CDT Pulse 106 07/04/2025 3:25 PM CDT Temperature 36.1 C (97 F) 07/04/2025 3:25 PM CDT Respiratory Rate 19 07/04/2025 3:25 PM CDT Oxygen Saturation 100% 07/04/2025 3:25 PM CDT Inhaled Oxygen Concentration - - Weight 63.5 kg (140 lb) 07/04/2025 3:25 PM CDT Height 165.1 cm (5' 5) 07/04/2025 3:25 PM CDT Body Mass Index 23.3 07/04/2025 3:25 PM CDT Plan of Treatment Upcoming Encounters Date Type Department Care Team (Late st Contact Info) Description 08/07/2025 2:45 PM CDT Office Visit [place] [employer] [facility] [address] [place] [address] Jhony Carter MD [address] [facility] [address] [place] [address] Health Maintenance Due Date Last Done Comments Hepatitis B Vaccine (1 of 3 - 19+ 3-dose series) 2002 Diabetes: Ophthalmology Exam 05/03/2025 Diabetes: Pedal Pulse Checked 05/03/2025 Diabetes: Sensory Foot Exam 05/03/2025 Diabetes: Visual Foot Exam 05/03/2025 Influenza Vaccine (#1) 2025 3, 09/09/2021, 05/16/2021, Additional history exists Diabetes: Hemoglobin A1C 10/04/2025 025, 03/08/2025, 02/20/2025 Pneumococcal Vaccine: Peds ( 0 to 5 Years) and At-Risk Patients (6 to 49 Years) (4 of 4 - PCV20 or PCV21) 2033 08/04/2018, 07/29/2017, 01/22/2012 Procedures Procedure Name Priority Date/Time Associated Diagnosis Comments VITAMIN D 25 HYDROXY Routine 07/31/2025 10:36 AM CDT CBC AND DIFFERENTIAL Routine 07/31/2025 10:36 AM CDT IRON PANEL (FE, TIBC, TSAT) Routine 07/31/2025 10:36 AM CDT Chronic kidney disease stage 2 PTH, INTACT Routine 07/31/2025 10:36 AM CDT Chronic kidney disease stage 2 RENAL FUNCTION PANEL Routine 07/31/2025 10:36 AM CDT Chronic kidney disease stage 2 from Last 3 Months Results * Iron Panel (Fe, TIBC, TSAT) (07/31/2025 10:36 AM CDT) TIBC 338 250 - 450 ug/dL [facility] UIBC 265 131 - 425 ug/dL [facility] Iron 73 27 - 159 ug/dL [facility] Iron Saturation (TSat) 22 15 - 55 % [facility] Blood Venous blood / Unknown 07/31/2025 10:36 AM CDT 07/30/2025 11:00 PM CDT Jhony Carter MD LAB BLOOD ORDERABLES Svetlana clayton Result Performing Organization Address City/[facility]/ZIP Co de Phone Number [facility] [address] [place] [address] * (ABNORMAL) Vitamin D 25 Hydroxy (07/31/2025 10:36 AM CDT) Vitamin D, 25-OH, Total 14.0(L) 30.0 - 100.0 ng/mL [facility] Comment: Vitamin D deficiency has been defined by the [place] of Medicine and an Endocrine Society practice guideline as a level of serum 25-OH vitamin D less than 20 ng/mL (1,2). The Endocrine Society went on to further define vitamin D insufficiency as a level between 21 and 29 ng/mL (2). 1. IOM ([place] of Medicine). 2010. Dietary reference intakes for calcium and D. [place]: The National Academies Press. 2. Roberta MF, Usha CAVAZOS, Ynes LINCOLN, et al. Evaluation, treatment, and prevention of vitamin D deficiency: an Endocrine Society clinical practice guideline. JCEM. 2010; 96(7):1911-30. 07/31/2025 10:3 6 AM CDT 07/30/2025 11:00 PM CDT Jhony Carter MD LAB BLOOD ORDERABLES Svetlana l Result [facility] [address] [place] [address] * (ABNORMAL) CBC and Differential (07/31/2025 10:36 AM CDT) WBC 4.9 3.4 - 10.8 x10E3/uL [facility] RBC 4.40 3.77 - 5.28 x10E6/uL [facility] Hemoglobin 12.4 11.1 - 15.9 g/dL [facility] Hematocrit 39.9 34.0 - 46.6 % [facility] MCV 91 79 - 97 fL [facility] MCH 28.2 26.6 - 33.0 pg [facility] MCHC 31.1(L) 31.5 - 35.7 g/dL [facility] RDW 13.9 11.7 - 15.4 % [facility] Platelets 265 150 - 450 x10E3/uL [facility] Neutrophils Relative 51 Not Estab. % [facility] Lymphocytes Relative 41 Not Estab. % [facility] Monocytes 8 Not Estab. % [facility] Eosinophils Relative 0 Not Estab. % [facility] Basophils Relative 0 Not Estab. % [facility] Neutrophils Absolute 2.5 1.4 - 7.0 x10E3/uL [facility] Lymphocytes Absolute 2.0 0.7 - 3.1 x10E3/uL [facility] Monocytes Absolute 0.4 0.1 - 0.9 x10E3/uL [facility] Eosinophils Absolute 0.0 0.0 - 0.4 x10E3/uL [facility] Basophils Absolute 0.0 0.0 - 0.2 x10E3/uL [facility] Immature Granulocytes 0 Not Estab. % [facility] Immature Grans (Absolute) 0.0 0.0 - 0.1 x10E3/uL [facility] 07/31/2025 10:3 6 AM CDT 07/30/2025 11:00 PM CDT Narrative [facility] - 08/02/2025 4:10 PM CDT Specimen Comment: A courtesy copy of this report has been sent to [phone] Jhony Carter MD LAB BLOOD ORDERABLES Svetlana l Result [facility] [address] [place] [address] * PTH, intact (07/31/2025 10:36 AM CDT) PTH 36 15 - 65 pg/mL [facility] Blood Venous blood / Unknown 07/31/2025 10:36 AM CDT 07/30/2025 11:00 PM CDT Jhony Carter MD LAB BLOOD ORDERABLES Svetlana l Result Performing Organization Address City/[facility] de Phone Number [facility] [address] [place] [address] * (ABNORMAL) Renal function panel (07/31/2025 10:36 AM CDT) Glucose 65(L) 70 - 99 mg/dL [facility] BUN 11 6 - 24 mg/dL [facility] Creatinine 1.11(H) 0.57 - 1.00 mg/dL [facility] eGFR CKD-EPI CR 2020 64 >59 mL/min/1.7 3 [facility] BUN/Creatinine Ratio 10 9 - 23 [facility] Sodium 138 134 - 144 mmol/L [facility] Potassium 3.5 3.5 - 5.2 mmol/L [facility] Chloride 99 96 - 106 mmol/L [facility] Bicarbonate (CO2) 19(L) 20 - 29 mmol/L [facility] Calcium 9.2 8.7 - 10.2 mg/dL [facility] Phosphorus 2.6(L) 3.0 - 4.3 mg/dL [facility] Albumin 4.3 3.9 - 4.9 g/dL [facility] Blood Venous blood / Unknown 07/31/2025 10:36 AM CDT 07/30/2025 11:00 PM CDT us Jhony Carter MD LAB BLOOD ORDERABLES Svetlana l Result Performing Organization Address City/State/[facility] Co de Phone Number [facility] [address] [place] [address] from Last 3 Months Insurance [facility] Care Teams Tower Cleaner Relationship Specialty [place] [address] [place] [phone] PCP - General Internal Medicine 05/03/25
--- OUTSIDE RECORDS SUMMARY | 2025-08-03 13:17 | XMS_ITS | Encounter Summary ---
Author Organization [facility] [employer] [facility] [employer] [facility] Address [address] [place] [address] Phone Care Team Providers Care Design Specialist Name Role Phone Omar Mahan MD Primary Care Provider [phone] Encounter Details Date Type Department Care Team (Late Contact Info) Description 08/02/2025 Documentation Only [place] [facility] [address] [address] Jhony Carter MD [address] [facility] [address] [place], [place] [id number] Social History Tobacco Use Types Packs/Day Years Used Date Smoking Tobacco: Never Smokeless Tobacco: Never Alcohol Use Standard Drinks/Week Comments Yes 0 (1 standard drink = 0.6 oz pur e alcohol) Comments Unknown Sex and Gender Information Value Date Recorded Sex Assigned at Not on file Legal Sex Female 2:56 PM EDT Gender Identity Not on file Sexual Orientation Not on file documented as of this encounter Plan of Treatment Upcoming Encounters Date Type Department Care Team (Late Contact Info) Description 08/07/2025 2:45 PM CDT Office Visit [place] [facility] [address] [facility] [address] [place] [address] Jhony Carter MD [address] [facility] [address] [place], [place] [id number] documented as of this encounter Visit Diagnoses Not on filedocumented in this encounter Care Teams Design Specialist Relationship Specialty Start Date End Date Omar Mahan MD [address] [place] [address] PCP - General Internal Medicine 05/03/25 documented as of this encounter
--- OUTSIDE RECORDS SUMMARY | 2025-08-03 13:17 | XMS_ITS | Encounter Summary ---
Author Organization [facility] [employer] [facility] [employer] [facility] Address [address] [address] Phone Care Team Providers Care [address]St Pressman Name Role Phone Omar Mahan MD Primary Care Provider [phone] Encounter Details Date Type Department Care Team (Late Contact Info) Description 07/31/2025 Orders Only [place] [facility] [address] [address] Jhony Carter MD [address] [facility] [address] [place], [place] [id number] Social History Tobacco Use Types Packs/Day Years [...] Description 08/07/2025 2:45 PM CDT Office Visit [place] [facility] [address] [facility] [address] [place] [address] Jhony Carter MD [address] [facility] [address] [place], [place] [phone] documented as of this encounter Procedures Procedure Name Priority Date/Time Associated Diagnosis Comments VITAMIN D 25 HYDROXY Routine 07/31/2025 10:36 AM CDT CBC AND DIFFERENTIAL Routine 07/31/2025 10:36 AM CDT documented in this encounter Results * (ABNORMAL) Vitamin D 25 Hydroxy (07/31/2025 10:36 AM CDT) Vitamin D, 25-OH, Total 14.0(L) 30.0 - 100.0 ng/mL [facility] Comment: Vitamin D deficiency has been defined by the [place] of Medicine and an Endocrine Society practice guideline as a level of serum 25-OH vitamin D less than 20 ng/mL (1,2). The Endocrine Society went on to further define vitamin D insufficiency as a level between 21 and 29 ng/mL (2). 1. IOM ([place] of Medicine). 2010. Dietary reference intakes for calcium and D. [place]: The National Academies Press. 2. Roberta MF, Usha CAVAZOS, Ynes LINCOLN, et al. Evaluation, treatment, and prevention of vitamin D deficiency: an Endocrine Society clinical practice guideline. JCEM. 2010; 96(7):1911-30. 07/31/2025 10:3 6 AM CDT 07/30/2025 11:00 PM CDT us Jhony Carter MD LAB BLOOD ORDERABLES Svetlana clayton Result [facility] [address] [place] [address] * (ABNORMAL) CBC and Differential (07/31/2025 10:36 AM CDT) WBC 4.9 3.4 - 10.8 x10E3/uL [facility] RBC 4.40 3.77 - 5.28 x10E6/uL [facility] Hemoglobin 12.4 11.1 - 15.9 g/dL [facility] Hematocrit 39.9 34.0 - 46.6 % [facility] MCV 91 79 - 97 fL [facility] MCH 28.2 26.6 - 33.0 pg [facility] MCHC 31.1(L) 31.5 - 35.7 g/dL [facility] RDW 13.9 11.7 - 15.4 % [facility] Platelets 265 150 - 450 x10E3/uL [facility] Neutrophils Relative 51 Not Estab. % [facility] Lymphocytes Relative 41 Not Estab. % [facility] Monocytes 8 Not Estab. % [facility] Eosinophils Relative 0 Not Estab. % [facility] Basophils Relative 0 Not Estab. % [facility] Neutrophils Absolute 2.5 1.4 - 7.0 x10E3/uL [facility] Lymphocytes Absolute 2.0 0.7 - 3.1 x10E3/uL [facility] Monocytes Absolute 0.4 0.1 - 0.9 x10E3/uL [facility] Eosinophils Absolute 0.0 0.0 - 0.4 x10E3/uL [facility] Basophils Absolute 0.0 0.0 - 0.2 x10E3/uL [facility] Immature Granulocytes 0 Not Estab. % [facility] Immature Grans (Absolute) 0.0 0.0 - 0.1 x10E3/uL [facility] 07/31/2025 10:3 6 AM CDT 07/30/2025 11:00 PM CDT Narrative [facility] - 08/02/2025 4:10 PM CDT Specimen Comment: A courtesy copy of this report has been sent to [phone] us Jhony Carter MD LAB BLOOD ORDERABLES Svetlana clayton Result [facility] [address] [place] [address] documented in this encounter Visit Diagnoses Not on filedocumented in this encounter Care Teams [address] Relationship Specialty [place] [address] [place] [phone] PCP - General Internal Medicine 05/03/25 documented as of this encounter
== END 2025-08-03 12:24 | disposition home or self-care (01) ==
PROVIDERS: PCP Internal Medicine Infectious Disease
DX: N18.2 Chronic kidney disease, stage 2 (mild) (principal)
CPT/HCPCS: 76770

== ENCOUNTER 2025-09-06 14:00 | Outpatient (RCR) | payer MEDICARE, SELFPAY ==
--- NOTE | 2025-06-14 11:05 | OPREHPOC ---
Outpatient Therapy Plan of Care This is a Multidisciplinary Plan of Care that may contain components documented by all disciplines (PT, OT, and ST.) PT Problem 1 PT Problem #1 Knowledge Deficit PT Goal 1 Goal / Goal Update Pt. will demo good understanding of diagnosis and prognosis, HEPs. Target Visit 8 PT Problem 2 PT Problem #2 Pain PT Goal 1 Goal / Goal Update Pt will report?improved pain of 2-3/10 at worst when performing walking >400ft and single leg standing.? Target Visit 12 PT Problem 3 PT Problem #3 Impaired Range of Motion PT Goal 1 Goal / Goal Update Pt will demo increase in lumbar and hip ROM to WNL without increased pain and discomfort in order to allow improved functional mobility and safety. Target Visit 10 PT Problem 4 PT Problem #4 Impaired Strength PT Goal 1 Goal / Goal Update Pt will demo 4/5 muscle strength to all tested lumbar, abdominal and BLE muscles. Target Visit 10
--- NOTE | 2025-06-14 11:05 | PTOPEVAL1 ---
Assessment and note entered by Autumn Singleton, PT Evaluation Information Assessment Status Evaluation Onset September 2024 Subjective Information Reports has been experiencing back issues since she was young due to scoliosis, Consistently leaning to the R side. However recently, back pain become constant and worsening with BLE pain and tingling, numb, sometimes burning, disrupting sleep. BLEs feels like giving out on her when walking long distances or going up/down stairs. Prolonged position makes it worse. Also has Fibromyalgia and chronic fatigue syndrome. Taking medication for relief. L foot drag Reported Pain Level Pain Score 6: Self Report Assessment PT Clinical Summary Pt presents to therapy with c/o worsening, constant back pain, BLE weakness and numbness, pain. Has a h/o fibromyalgia and chronic fatigue syndrome, Demos dextroscoliosis, significant postural impairments, ROM and strength deficits, gait deviations impacting her ability to perform ADLs, IADLs and ambulation indep. She will benefit from skilled PT for pain management, flexibility and strength training, postural awareness and HEP program to improve safety and functional mobility. Plan of Care Interventions Check Out for Orthotic/Prosthetic,Electrical Stimulation,Gait Training,Hot Pack/Cold Pack,Neuro Re-education,Patient/Caregiver Education, Therapeutic Activities,Therapeutic Exercise, Ultrasound PT Services Indicated Yes Treatment Frequency and 2x/wk x 12 visits Duration These treatments will address the objective and functional deficits as defined above. The patient will be advanced safely and appropriately in order for the patient to progress towards his/her prior level of function. Additional exercises will be introduced and as well as a comprehensive home exercise program upon discharge, if needed, ?to ensure carryover of functional gains achieved in the clinic. This treatment plan has been reviewed and agreement upon by the patient.
--- NOTE | 2025-06-26 13:10 | PCPTNOTE ---
pt cancelled appt this date, no reason provided
--- NOTE | 2025-06-29 15:17 | PCPTNOTE ---
Pt no call/no showed her appointment this afternoon. Called her and she thought her appointment was later in the day. She plans on coming to her appointment Thursday.
--- NOTE | 2025-08-02 16:49 | OPREHPOC ---
Outpatient Therapy Plan of Care This is a Multidisciplinary Plan of Care that may contain components documented by all disciplines (PT, OT, and ST.) PT Problem 1 PT Problem #1 Knowledge Deficit PT Goal 1 Goal / Goal Update Pt. will demo good understanding of diagnosis and prognosis, HEPs. - met updated 08/02/2025: Pt will perform balance and strengthening HEPs with 90% accuracy without cues. Target Visit 10 PT Problem 2 PT Problem #2 Pain PT Goal 1 Goal / Goal Update Pt will report?improved pain of 2-3/10 at worst when performing walking >400ft and single leg standing.?-continue with this goal Target Visit 10 Progress Partially Met PT Problem 3 PT Problem #3 Impaired Range of Motion PT Goal 1 Goal / Goal Update Pt will demo increase in lumbar and hip ROM to WNL without increased pain and discomfort in order to allow improved functional mobility and safety. Target Visit 10 Progress Met PT Problem 4 PT Problem #4 Impaired Strength PT Goal 1 Goal / Goal Update Pt will demo 4/5 muscle strength to all tested lumbar, abdominal and BLE muscles. updated 08/02/2025: Pt will perform SLS with improved stability, no postural sway x 30 seconds each LE. Target Visit 10 PT Problem 5 PT Problem #5 Impaired Endurance PT Goal 1 Goal / Goal Update new goal 08/02/2025: Pt will perform ambulation > 400ft. within 2 minutes, 20 reps each LE of hooklying marches with 3# aw to improve strength and endurance. Target Visit 10
--- NOTE | 2025-08-02 16:49 | PTOPPROG ---
Assessment and note entered by Autumn Singleton, PT Re-Evaluation Information Assessment Status Progress Diagnosis Lumbar Spondylosis, Fibromyalgia ICD-10 Condition Codes (PT) Pain in low back M54.50,Radiculopathy, thoracolumbar region M54.15,Pain in right hip M25. 551,Pain in left hip M25.552 Onset September 2024 Subjective Information Reports her pain is persisting and continue to be constant a 7/10 and standing up to 20 min maximum. Feels like BLE pain and tingling and numb more while sitting now than when she started therapy. States that the heel lift on the L foot has helped with knee pain and she felt more stable when walking wearing the lift versus none. She also feels that her muscles have loosened up some. States she needs more strengthening to improve ability to move and maintain balance. Assessment PT Clinical Summary Pt received 9 treatment sessions and demos improvement in flexibility, active ROM of lumbar spine and BLEs, improved SLS of 20 seconds each LE while wearing the heel lift. She continues to demo decreased strength and stability and continue to feel the pain on her back, and decreased muscle endurance. She will benefit from continued skilled PT to meet her goals and improve safety, indep functional mobility and community navigation . Plan of Care Interventions Check Out for Orthotic/Prosthetic,Electrical Stimulation,Gait Training,Hot Pack/Cold Pack, Manual Therapy,Mechanical Traction,Neuro Re- education,Patient/Caregiver Education,Therapeutic Activities,Therapeutic Exercise,Ultrasound PT Services Indicated Yes Treatment Frequency and 2x/wk x 10 visits Duration These treatments will address the objective and functional deficits as defined above. The patient will be advanced safely and appropriately in order for the patient to progress towards his/her prior level of function. Additional exercises will be introduced and as well as a comprehensive home exercise program upon discharge, if needed, ?to ensure carryover of functional gains achieved in the clinic. This treatment plan has been reviewed and agreement upon by the patient.
--- NOTE | 2025-09-08 10:24 | PTOPDC ---
Assessment and note entered by Autumn Singleton, PT [place] Information Assessment Status Discharge Diagnosis Lumbar Spondylosis, Fibromyalgia ICD-10 Condition Codes (PT) Pain in low back M54.50,Radiculopathy, thoracolumbar region M54.15,Pain in right hip M25. 551,Pain in left hip M25.552 Onset September 2024 Subjective Information Pt reports she is feeling better and has been able to walk farther and walking in a straight path now. She still feel some back pain that is relieved with stretching. Her shoulder is also bothering her and wants to do therapy on it. Reported Pain Level Pain Score 5: Self Report Assessment PT Clinical Summary Dominga received a total of 16 treatment sessions and demos good progress with therapy. She benefited from the orthosis to address LLD, has gains for strength, ROM and balance. Reports compliant with HEPs, educated on postural awareness, exercises and frequency and fall prevention techniques. Pt agreeable to DC today and was planning to go back to [place] to request for therapy for her arm. Plan of Care PT Services Indicated No
== END 2025-09-08 11:54 | disposition home or self-care (01) ==
LOC: ANHPT 14:00
PROVIDERS: PCP Internal Medicine Infectious Disease; Visit Provider Nurse Practitioner Adult Health
DX: M47.816 Spondylosis without myelopathy or radiculopathy, lumbar region (principal); M79.7 Fibromyalgia
CPT/HCPCS: 97014; 97110; 97112; 97140; 97161; 97530; 97750; G0283